=== PATIENT | female | born 1985 | race Caucasian/White ===

== ENCOUNTER 2024-09-22 16:09 | Emergency (ER) | payer MEDICAID, OTHER ==
[~2024-09-22] VITALS: Ht 167.6 cm; Wt 56.2 kg
[2024-09-22 16:31] LABS: BILIRUBIN,URINE SMALL (NEGATIVE); BLOOD, URINE Large Ery/uL (NEGATIVE); COLOR,URINE RED (YELLOW); KETONES,URINE Trace mg/dL (NEGATIVE); LEUKOCYTE ESTERASE ,URINE Negative (NEGATIVE); NITRITE, URINE NEGATIVE (NEGATIVE); PROTEIN,URINE 100 mg/dl (NEGATIVE); UGLUCOSE Negative (NEGATIVE)
[2024-09-22 16:32] LABS: ADD URINE CULTURE YES; APPEARANCE,URINE HAZY (CLEAR); BACTERIA,URINE 1+ /HPF (None Seen); RBC,URINE 21-50 /HPF (0-2)
[2024-09-22 16:33] LABS: PREGNANCY TEST URINE QUAL NEGATIVE (NEGATIVE)
[2024-09-22 16:39] LABS: AMPHETAMINE, URINE NEGATIVE (NEGATIVE); BARBITURATE, URINE NEGATIVE (NEGATIVE); CANNABINOID, URINE NEGATIVE (NEGATIVE); OPIATE, URINE NEGATIVE (NEGATIVE); PHENCYCLIDINE SCREEN,URINE NEGATIVE (NEGATIVE)
[2024-09-22 16:41] LABS: BENZODIAZEPINE, URINE POSITIVE (NEGATIVE); COCCAINE, URINE POSITIVE (NEGATIVE)
[2024-09-22 16:44] LABS: BASOPHILS # (AUTO) 0.1 K/uL (0.0-0.2); BASOPHILS % (AUTO) 1.1 % (0.0-2.0); EOSINOPHILS % (AUTO) 0.5 % (0.0-6.0); HEMATOCRIT 40 % (33-45); HEMOGLOBIN 13.1 g/dL (11.5-14.8); LYMPHOCYTES # (AUTO) 2.5 K/uL (0.8-4.8); LYMPHOCYTES % (AUTO) 51.5 % (20.0-44.0); MEAN CORPUSCULAR HEMOGLOBIN 28 PG (26.0-33.0); MEAN CORPUSCULAR HGB CONC 32 g/dl (31.0-36.0); MEAN CORPUSCULAR VOLUME 86 fL (82-100); MONOCYTES # (AUTO) 0.2 K/uL (0.1-1.30); MONOCYTES % (AUTO) 4.8 % (2.0-12.0); NEUTROPHILS % (AUTO) 42.1 % (43.0-81.0); PLATELET COUNT (AUTO) 211 K/uL (150-450); RED CELL DISTRIBUTION WIDTH 16.3 % (11.5-15.0); WHITE BLOOD COUNT (AUTO) 4.8 K/uL (4.3-11.0)
[2024-09-22 17:03] LABS: CALCIUM, SERUM 8.6 mg/dL (8.5-10.1); CARBON DIOXIDE 27 mmol/L (21-32); CHLORIDE 103 mmol/L (98-107); CREATININE 0.7 mg/dL (0.6-1.3); GLUCOSE 139 mg/dL (74-106); SODIUM SERUM 139 mmol/L (136-145); UREA NITROGEN, BLOOD 5 mg/dL (7-18)
[2024-09-22 17:06] LABS: ALANINE AMINOTRANSFERASE 88 U/L (12-78); ALBUMIN 3.4 g/dL (3.4-5.0); ALCOHOL, BLOOD 289 mg/dL (0-10); ALKALINE PHOSPHATASE 100 U/L (46-116); ASPARTATE AMINOTRANSFERASE 218 U/L (15-37); BILIRUBIN,DIRECT 0.6 mg/dL (0.0-0.2); BILIRUBIN,TOTAL 1.3 mg/dL (0.2-1.0); TOTAL PROTEIN, SERUM 8.1 g/dL (6.4-8.2)
[2024-09-22 17:08] LABS: ACETAMINOPHEN <10 ug/ml (10-30); SALICYLATE < 2.8 mg/dL (2.8-20.0)
[2024-09-22 18:41] LABS: LYMPHOCYTES % (MANUAL) 55 % (16-48); MONOCYTES % (MANUAL) 3 % (0-11.0); NEUTROPHILS % (MANUAL) 42 (42-76)
[2024-09-22 18:43] LABS: ANISOCYTOSIS 1+; PLATELET ESTIMATE ADEQUATE
[2024-09-22] MEDS: ONDANSETRON 4 MG TAB.RAPDIS SL ONE (19:23)
[2024-09-23] MEDS ORDERED: CHLORDIAZEPOXIDE HCL 25 MG CAPSULE ONE ×2 (00:42→09:44)
[2024-09-23] MEDS ORDERED: ONDANSETRON 4 MG TAB.RAPDIS ONE ×2 (00:43→05:09)
[2024-09-23] MEDS: CHLORDIAZEPOXIDE HCL 25 MG CAPSULE PO ONE ×2 (00:44→09:51)
[2024-09-23] MEDS: ONDANSETRON 4 MG TAB.RAPDIS SL ONE ×2 (00:44→00:50)
[2024-09-23] MEDS ORDERED: FAMOTIDINE (20 MG) 20 MG TABLET ONE (09:44)
[2024-09-23] MEDS: FAMOTIDINE (20 MG) 20 MG TABLET PO ONE ×2 (09:51)
[2024-09-23 10:00] VITALS: BP 119/74; TEMP 98.3; O2SAT 98
[2024-09-23] MEDS: SUCRALFATE 1 G TABLET PO ONE (10:22)
== END 2024-09-23 12:17 ==
LOC: ER 16:23
DX: R45.851 Suicidal ideations (principal); Z79.899 Other long term (current) drug therapy; Z20.822 Contact with and (suspected) exposure to COVID-19
CPT/HCPCS: 99285; 85025; 80048; 87086; 80076; 84703; 81001; 36415; 87426; 80143; 80320; 80307; Q0162 ×3; G0480

== ENCOUNTER 2024-11-02 19:34 | Emergency (ER) | payer OTHER ==
[~2024-11-02] VITALS: Ht 162.6 cm; Wt 76.2 kg
[2024-11-02 20:25] LABS: APPEARANCE,URINE CLEAR (CLEAR)
[2024-11-02 20:30] LABS: SQUAMOUS EPITHELIAL CELL,UR Few /HPF (None Seen)
[2024-11-02] MEDS: KETOROLAC TROMETHAMINE 15 MG/ML VIAL IV ONE (22:00)
[2024-11-02 22:25] LABS: PLATELET COUNT (AUTO) 263 K/uL (150-450); RED BLOOD CELL COUNT(AUTO) 4.69 MIL/uL (4.0-5.2); RED CELL DISTRIBUTION WIDTH 16.2 % (11.5-15.0); WHITE BLOOD COUNT (AUTO) 8.8 K/uL (4.3-11.0)
[2024-11-02] MEDS ORDERED: KETO10TA2 PO (22:33)
[2024-11-02] MEDS ORDERED: TAMS-12 GT (22:33)
[2024-11-02] MEDS ORDERED: CEFP200T14 PO (22:33)
[2024-11-02] MEDS ORDERED: ONDA4TAB5 PO (22:33)
[2024-11-02 22:37] LABS: ASPARTATE AMINOTRANSFERASE 133.0 U/L (15-37); CALCIUM, SERUM 9.0 mg/dL (8.5-10.1); CREATININE 0.5 mg/dL (0.6-1.3); SODIUM SERUM 133.0 mmol/L (136-145); TOTAL PROTEIN, SERUM 8.7 g/dL (6.4-8.2); UREA NITROGEN, BLOOD 3.0 mg/dL (7-18)
[2024-11-02] MEDS: IV NS 0.9% 1,000 ML BAG IV ONE (22:38)
[2024-11-02] MEDS ORDERED: KETOROLAC TROMETHAMINE 15 MG/ML VIAL ONE (23:01)
[2024-11-02] MEDS ORDERED: IV NS 0.9% 250 ML IV ONE (23:12)
[2024-11-02] MEDS ORDERED: IOHEXOL-300 100 ML VIAL IV ONE (23:12)
[2024-11-02] MEDS ORDERED: CT SWABBABLE VALVE TRANS SET 1 EA INFUS.SET MC ONE (23:12)
[2024-11-03] MEDS ORDERED: ACETAMINOPHEN 325 MG TABLET ONE (00:09)
[2024-11-03] MEDS: ACETAMINOPHEN 325 MG TABLET PO ONE (00:47)
[2024-11-03 01:40] VITALS: BP 138/70; TEMP 98.6; O2SAT 99
== END 2024-11-03 01:41 | disposition home or self-care (01) ==
LOC: ER 19:35
DX: R10.31 Right lower quadrant pain (principal); R11.2 Nausea with vomiting, unspecified; R19.7 Diarrhea, unspecified; R31.9 Hematuria, unspecified; R10.2 Pelvic and perineal pain; K76.0 Fatty (change of) liver, not elsewhere classified; Z87.442 Personal history of urinary calculi
CPT/HCPCS: 99285; 74177; 96374; 96361; 85025; 80048; 87086; 83690; 80076; 81001; 36415; 84702; J1885; J7030; J7050; Q9967

== ENCOUNTER 2024-12-16 15:47 | Emergency (ER) | payer OTHER ==
[~2024-12-16] VITALS: Ht 160 cm; Wt 61.2 kg
[~2024-12-16 15:47] MED LIST: CEFP200T14 PO; KETO10TA2 PO; ONDA4TAB5 PO; TAMS-12 GT
[2024-12-16 16:50] LABS: PLATELET COUNT (AUTO) 187 K/uL (150-450); RED BLOOD CELL COUNT(AUTO) 4.39 MIL/uL (4.0-5.2); RED CELL DISTRIBUTION WIDTH 16.6 % (11.5-15.0); WHITE BLOOD COUNT (AUTO) 7.3 K/uL (4.3-11.0)
[2024-12-16 17:00] VITALS: TEMP 98.2
[2024-12-16] MEDS: ONDANSETRON HCL/PF 4 MG/2 ML VIAL IVP ONE (17:00)
[2024-12-16] MEDS: PHENOBARBITAL SODIUM 520 MG in IV NS 0.9% 100 ML IV ONE (17:00)
[2024-12-16] MEDS: IV NS 0.9% 1,000 ML BAG IV ONE (17:00)
[2024-12-16] MEDS: MAG HYDROX/AL HYDROX/SIMETH 30 ML UDC PO ONE (17:00)
[2024-12-16 17:04] LABS: ASPARTATE AMINOTRANSFERASE 102.0 U/L (15-37); CALCIUM, SERUM 9.7 mg/dL (8.5-10.1); CREATININE 0.8 mg/dL (0.6-1.3); TOTAL PROTEIN, SERUM 7.8 g/dL (6.4-8.2); UREA NITROGEN, BLOOD 5.0 mg/dL (7-18)
[2024-12-16 17:08] LABS: SODIUM SERUM 133.0 mmol/L (136-145)
[2024-12-16] MEDS ORDERED: ONDANSETRON HCL/PF 4 MG/2 ML VIAL ONE (17:12)
[2024-12-16] MEDS ORDERED: MAG HYDROX/AL HYDROX/SIMETH 30 ML UDC ONE (17:13)
[2024-12-16] MEDS ORDERED: LIDOCAINE VISCOUS 2% UD 15 ML UDC ONE (17:21)
[2024-12-16] MEDS: LIDOCAINE VISCOUS 2% UD 15 ML UDC MM ONE (17:30)
[2024-12-16] MEDS: POTASSIUM CHLORIDE 20 MEQ TAB.PRT.SR PO ONE (18:00)
[2024-12-16] MEDS: POTASSIUM CL. PREMIX PERIPHER. 50 ML IV SCH (18:15)
[2024-12-16 19:28] LABS: CALCIUM, SERUM 9.0 mg/dL (8.5-10.1); CREATININE 0.7 mg/dL (0.6-1.3); SODIUM SERUM 138.0 mmol/L (136-145); UREA NITROGEN, BLOOD 3.0 mg/dL (7-18)
[2024-12-16 21:44] VITALS: BP 111/69; O2SAT 99
== END 2024-12-17 00:01 | disposition short-term general hospital (02) ==
LOC: ER 15:51
DX: R10.13 Epigastric pain (principal); E87.6 Hypokalemia; F10.239 Alcohol dependence with withdrawal, unspecified; R11.2 Nausea with vomiting, unspecified; R94.31 Abnormal electrocardiogram [ECG] [EKG]; Y90.9 Presence of alcohol in blood, level not specified
CPT/HCPCS: 36415; 76705-TC; 80048-TC; 80076-TC; 83690-TC; 83735-TC; 85025-TC; 87081-TC; J2405; J2560; J3480; J7030

== ENCOUNTER 2025-02-27 20:55 | Emergency (ER) | payer OTHER ==
[~2025-02-27] VITALS: Ht 152.4 cm; Wt 57.6 kg
[2025-02-27 21:43] LABS: PLATELET COUNT (AUTO) 250 K/uL (150-450); RED BLOOD CELL COUNT(AUTO) 4.68 MIL/uL (4.0-5.2); RED CELL DISTRIBUTION WIDTH 18.8 % (11.5-15.0); WHITE BLOOD COUNT (AUTO) 6.0 K/uL (4.3-11.0)
[2025-02-27 21:44] LABS: APPEARANCE,URINE CLEAR (CLEAR); BLOOD, URINE NEGATIVE Ery/uL (NEGATIVE); LEUKOCYTE ESTERASE ,URINE NEGATIVE (NEGATIVE); NITRITE, URINE NEGATIVE (NEGATIVE); UGLUCOSE NEGATIVE (NEGATIVE)
[2025-02-27 21:45] LABS: PREGNANCY TEST URINE QUAL NEGATIVE (NEGATIVE)
[2025-02-27 21:56] LABS: CALCIUM, SERUM 9.1 mg/dL (8.5-10.1); CREATININE 0.6 mg/dL (0.6-1.3); SODIUM SERUM 142 mmol/L (136-145); UREA NITROGEN, BLOOD 6 mg/dL (7-18)
[2025-02-27 21:59] LABS: ALCOHOL, BLOOD 287 mg/dL (0-10); ASPARTATE AMINOTRANSFERASE 47 U/L (15-37); TOTAL PROTEIN, SERUM 8.8 g/dL (6.4-8.2)
[2025-02-27 21:59] LABS: AMPHETAMINE, URINE NEGATIVE (NEGATIVE); BARBITURATE, URINE NEGATIVE (NEGATIVE); BENZODIAZEPINE, URINE NEGATIVE (NEGATIVE); CANNABINOID, URINE NEGATIVE (NEGATIVE); COCCAINE, URINE NEGATIVE (NEGATIVE); OPIATE, URINE NEGATIVE (NEGATIVE)
[2025-02-27 23:16] VITALS: BP 125/84; TEMP 98; O2SAT 98
== END 2025-02-27 23:16 | disposition home or self-care (01) ==
LOC: ER 20:55
DX: F10.129 Alcohol abuse with intoxication, unspecified (principal); F41.9 Anxiety disorder, unspecified; R73.9 Hyperglycemia, unspecified; R10.20 Pelvic and perineal pain unspecified side; Z88.1 Allergy status to other antibiotic agents; Z79.899 Other long term (current) drug therapy; Y90.9 Presence of alcohol in blood, level not specified
CPT/HCPCS: 36415; 80048-TC; 80076-TC; 82962-TC; 84702-TC; 84703-TC; 85025-TC; G0480

== ENCOUNTER 2025-02-28 20:11 | Emergency (ER) | payer OTHER ==
[~2025-02-28] VITALS: Ht 162.6 cm; Wt 54.4 kg
[2025-02-28 21:04] LABS: PLATELET COUNT (AUTO) 267 K/uL (150-450); RED BLOOD CELL COUNT(AUTO) 4.49 MIL/uL (4.0-5.2); RED CELL DISTRIBUTION WIDTH 18.4 % (11.5-15.0); WHITE BLOOD COUNT (AUTO) 6.3 K/uL (4.3-11.0)
[2025-02-28 21:06] LABS: APPEARANCE,URINE CLEAR (CLEAR); BLOOD, URINE TRACE-INTA Ery/uL (NEGATIVE); LEUKOCYTE ESTERASE ,URINE NEGATIVE (NEGATIVE); NITRITE, URINE NEGATIVE (NEGATIVE); UGLUCOSE NEGATIVE (NEGATIVE)
[2025-02-28 21:08] LABS: ADD URINE CULTURE NO; SQUAMOUS EPITHELIAL CELL,UR Few /HPF (None Seen)
[2025-02-28 21:12] LABS: CALCIUM, SERUM 8.7 mg/dL (8.5-10.1); CREATININE 0.8 mg/dL (0.6-1.3); SODIUM SERUM 141 mmol/L (136-145); UREA NITROGEN, BLOOD 3 mg/dL (7-18)
[2025-02-28 21:15] LABS: AMPHETAMINE, URINE NEGATIVE (NEGATIVE); BARBITURATE, URINE NEGATIVE (NEGATIVE); BENZODIAZEPINE, URINE NEGATIVE (NEGATIVE); CANNABINOID, URINE NEGATIVE (NEGATIVE); COCCAINE, URINE NEGATIVE (NEGATIVE); OPIATE, URINE NEGATIVE (NEGATIVE)
[2025-02-28 21:21] LABS: ASPARTATE AMINOTRANSFERASE 59 U/L (15-37); TOTAL PROTEIN, SERUM 8.8 g/dL (6.4-8.2)
[2025-03-01 00:22] VITALS: BP 135/90; TEMP 98; O2SAT 94
== END 2025-03-01 00:23 | disposition home or self-care (01) ==
LOC: ER 20:13
DX: Z00.8 Encounter for other general examination (principal); Z88.1 Allergy status to other antibiotic agents; Z88.8 Allergy status to other drugs, medicaments and biological substances; Z79.899 Other long term (current) drug therapy
CPT/HCPCS: 36415; 80048-TC; 80076-TC; 81001; 85025-TC; 98960; G0480